=== PATIENT | female | born 1960 | race Caucasian/White ===

== ENCOUNTER → 2017-08-12 | Outpatient (CLI) | payer BC ==
[~2017-08-12] MED LIST: ADVAIR 2501 DISK W/D PO; ALLEGRA-D1 TAB.SR1 PO; PAXIL PO; PRAVASTATIN SOD40 MG PO; PRO AIR INH; PROAIR HFA8.5 GM INH
--- NOTE | ~2017-08-12 | MY29 ---
[facility] A Service of [facility] RADIOLOGY TEXT RESULTS PATIENT: RICHARD DIAS LOCATION: [facility] : 60 UNIT #: [id number] AGE: [address]: Zoey Solomon MD SEX: F ORDER DR: [id number] [facility] [address] [place], [place] [address] [id number] O MR#: [id number] Acc #: [id number] NAME: RICHARD DIAS : 1960 SEX: F STUDY DATE/TIME: 08/12/2017 13:09 UNIT: [facility] ROOM: STUDY DESCRIPTION: MY LUKE SCREENING W/ CAD BILAT Attending Physician: Zoey Solomon M.D. Referring Physician: Zoey Solomon M.D. Ordering Physician: Zoey Solomon M.D. Primary Care Physician: Evelyne Garcia Aprn MEDICAL IMAGING REPORT This report is preliminary unless electronic signature is present EXAM Digital screening mammogram, 08/12/2017; [facility]. HISTORY 56-year-old woman positive family history, grandmother age 48. Prior excisional biopsy right breast. Personal history of cervical cancer. Annual screen. COMPARISON Mammograms date to 04/30/2006 with most recent screening comparison 08/09/2016 TECHNIQUE Digital imaging of each breast was completed utilizing screening protocol. Review includes FDA-approved CAD device. FINDINGS Breast parenchyma is partially fatty replaced. Residual fibroglandular parenchyma is associated with nodularity in each breast predominantly upper outer quadrants and greater in the left breast. This appearance is however stable. I see no developing mass and no interval occurring microcalcifications. There is no focal architectural deformity. IMPRESSION Stable benign mammogram. Annual screening recommended. BIRADS 2. Patients over the age of 40 are entered into a reminder system with target due date for the next mammogram. A result letter will also be sent to the patient. BIRADS: 2 Benign findings. [facility] A Service [facility] RADIOLOGY TEXT RESULTS PATIENT: RICHARD DIAS LOCATION: [facility] : 60 UNIT #: [id number] AGE: [address]: Zoey Solomon MD SEX: F ORDER DR: Dictated by... Donnie Banda M.D. THIS IS AN ELECTRONICALLY VERIFIED REPORT Donnie Banda M.D. at 08/13/2017 8:24 AM KYLIE/jacque TD: 08/12/2017 19:25 JOB #: [id number] MEDICAL IMAGING REPORT Page 1 of 1 COPY
== END | disposition home or self-care (01) ==
LOC: CWCC 13:00
DX: Z12.31 Encounter for screening mammogram for malignant neoplasm of breast (principal); Z80.3 Family history of malignant neoplasm of breast; Z98.890 Other specified postprocedural states
CPT/HCPCS: G0202